=== PATIENT | male | born 1980 | race Caucasian/White ===

== ENCOUNTER 2021-10-30 10:38 | Emergency (ER) | payer OTHER, SELFPAY ==
--- NOTE | ~2021-10-30 | XR_ITS ---
EXAMINATION: XR CHEST CLINICAL INFORMATION: Altered mental status. COMPARISON: None TECHNIQUE: Frontal view of the chest was obtained. FINDINGS: Normal appearance of the cardiomediastinal silhouette. Mild interstitial prominence. No focal infiltrates. No pleural effusion or pneumothorax. No acute osseous abnormalities. The visualized upper abdomen is within normal limits. XR/XR chest 1V IMPRESSION: Mild interstitial prominence which is nonspecific and could be associated with small airways disease or atypical/viral infections.
[2021-10-30 10:52] VITALS: BP 119/78; PULSE 81; RESP 17; TEMP 36.9; O2SAT 98; BMI 37.5
[2021-10-30 11:06] VITALS: BP 119/78; PULSE 81; RESP 17; TEMP 36.9; O2SAT 98
--- NOTE | 2021-10-30 11:21 | ECG_ITS ---
Test Reason : medical clearance Blood Pressure : / mmHG Vent. Rate : 082 BPM Atrial Rate : 082 BPM P-R Int : 156 ms QRS Dur : 088 ms QT Int : 392 ms P-R-T Axes : 051 043 028 degrees QTc Int : 457 ms Normal sinus rhythm Normal ECG No previous ECGs available Referred By: Diana Dias Electronically Signed By:KAILA CISNEROS
--- NOTE | 2021-10-30 11:30 | ED_ITS ---
HPI - Psych General Chief Complaint: Psychiatric Symptoms Stated Complaint: increased confusion Time Seen by Provider: 10/30/21 11:11 Source: patient and EMS Mode of arrival: EMS History of Present Illness HPI Narrative: 41-year-old male with a past medical history schizoaffective bipolar type presenting to the ED from [facility] for ?AMS during group session today, patient was noted to be lethargic and falling asleep. Patient is currently admitted to [facility] for SI s/p medication overdose. Patient states facility recently increased his Seroquel from 50 mg b.i.d. to 100 mg b.i.d. which is making him drowsy. States he is also having vivid dreams secondary to medication. Denies any illicit drug or ETOH use. Denies SI/HI. States he has be your best, denies fever, chills, cough, nausea/, abdominal pain, fall or head injury MD complaint: altered mental status Onset (ago): hour(s) Duration: constant Related Data Home Medications Medication Instructions Recorded Confirmed atorvastatin 10 mg tablet 10 mg PO BEDTIME 10/30/21 10/30/21 buprenorphine 8 mg-naloxone 2 mg 1 film buccal BID 10/30/21 10/30/21 sublingual film (Suboxone) bupropion HCl 300 mg 24 hr tablet, 300 mg PO QAM 10/30/21 10/30/21 extended release citalopram 10 mg tablet 10 mg PO DAILY 10/30/21 10/30/21 gabapentin 800 mg tablet 800 mg PO TID 10/30/21 10/30/21 lisinopril 5 mg tablet 5 mg PO DAILY 10/30/21 10/30/21 metformin 500 mg tablet,extended 500 mg PO BID 10/30/21 10/30/21 release 24 hr olanzapine 20 mg tablet 20 mg PO BEDTIME 10/30/21 10/30/21 omeprazole 20 mg capsule,delayed 20 mg PO DAILY 10/30/21 10/30/21 release pantoprazole 20 mg tablet,delayed 20 mg PO DAILY 10/30/21 10/30/21 release prazosin 2 mg capsule 2 mg PO BEDTIME 10/30/21 10/30/21 quetiapine 100 mg tablet 100 mg PO BID 10/30/21 10/30/21 trazodone 50 mg tablet 50 mg PO BEDTIME PRN Insomnia 10/30/21 10/30/21 Allergies Allergy/AdvReac Type Severity Reaction Status Date / Time No Known Allergies Allergy Verified 10/30/21 11:21 Review of Systems Review of Systems: Constitutional: No Fever, No Chills, + Fatigue, No Malaise ENT/Mouth: No Ear Pain, No Nasal Congestion, No sore throat, No Rhinorrhea, No Swallowing Difficulty Eyes: No Eye Pain, No Swelling, No Redness, No Vision Changes Cardiovascular: No Chest Pain, No SOB, No Edema, No Palpitations Respiratory: No Cough, No Sputum, No Dyspnea Gastrointestinal: No Nausea, No Vomiting, No Diarrhea, No Constipation, No Abdominal pain Genitourinary: No Dysuria, No Hematuria, No Flank Pain Musculoskeletal: No joint pain, No Myalgias, No Joint Swelling Skin: No Skin Lesions, No rash Neuro: No Weakness, No Dizziness, No Headache Psych: No Anxiety/Panic, No Depression, No SI/HI/AH/VH, No Social Issues Yes all other systems are reviewed and are negative Constitutional: Constitutional: Reports as per [facility] Past Medical History Attestation statement: The following information was validated with the patient. Social History Social History Patient Tobacco Use Status: Current everyday Tobacco user Smoked in Last 30 Days: Yes Use of substances other than those prescribed or required for medical reasons: No Advance Directives: No Advance Directives Information Provided: Yes Healthcare Proxy: No Guardian: No Physical Exam Vital Signs: Vital Signs: Last Vital Signs Temp 98.5 F 10/30/21 11:06 Pulse 81 10/30/21 11:06 Resp 17 10/30/21 11:06 BP 119/78 10/30/21 11:06 Pulse Ox 98 10/30/21 11:06 O2 Del Method 10/30/21 11:06 BMI result Body Mass Index 37.5 Const: General: cooperative, healthy appearing, no acute distress, alert and lethargic Orientation/consciousness: patient oriented x3 and lethargic Limitations: no limitations HEENT: Head: Yes normal to inspection and Yes atraumatic Ears: hearing grossly normal bilaterally General nose exam: Normal external nose present Face and sinus: Yes normal facial exam Throat: Yes posterior oropharynx normal Eyes: General: appearance normal, both eyes and all related structures Pupils: Equal, round and reactive pupils present EOM: EOMs intact bilaterally Neck: Neck: Yes normal visual inspection and Yes no meningeal signs Resp: Effort & Inspection: normal respiratory effort and no respiratory distress Auscultation: clear to auscultation bilaterally, no rales, no rhonchi and no wheezes Cardio: Rate: regular rate Heart sounds: S1 normal heart sound present and S2 normal heart sound present GI: Inspection: Yes normal to inspection Palpation (GI): Soft to palpation, nontender, no guarding and not rigid : General: Yes no CVA tenderness Back/Spine/Pelvis: Back: no CVA tenderness Skin: Rashes: no rashes Wounds: no wounds Neuro: General: patient oriented x3, tone normal and no meningeal signs Cranial nerves: Yes CN's II-XII intact bilaterally and Yes Equal, round and reactive pupils present Gait exam (Neuro): Normal gait present Extrem: General: Yes normal to inspection Psych: Appearance: grossly normal Affect: normal affect Attitude: cooperative Thought process: Normal thought process present Thought content: Normal thought content present Insight: Good insight present (Psych) Judgement: Good judgement present (Psych) Course Course Course Narrative: -mild leukopenia at 4.6. H&H 10.2 / 32.9. Labs otherwise unremarkable. Tox screen negative -COVID-19 negative XR chest 1V IMPRESSION: Mild interstitial prominence which is nonspecific and could be associated with small airways disease or atypical/viral infections. >1420--patient is medically cleared for crisis evaluation. Physician observation initiated -2100--ED care transferred to Dr. Jack pending crisis evaluation MDM - Psych MDM Narrative Medical decision making narrative: 41-year-old male with a past medical history schizoaffective bipolar type presenting to the ED from [facility] for ?AMS during group session today, patient was noted to be lethargic and falling asleep. On exam vital signs stab le, NAD, nontoxic appearing, A&O x3, appears tired/lethargic however alert and conversational. Suspect medication adverse reaction due to recent change. Will rule out metabolic/infectious etiologies and substance abuse. No suspicion for ICH/CVA Plan: EKG, labs, UA, CXR, crisis consult Medical Records Attestation: I reviewed the patient's medical records. Lab Data Attestation: I reviewed the patient's lab results. Result diagrams: 10/30/21 11:50 10/30/21 11:50 Labs: Lab Results 10/30/21 10/30/21 10/30/21 Range/Units 11:50 11:50 11:50 WBC 4.6 L (4.8-10.8) X10*3/uL RBC 3.99 L (4.60-5.80) X10*6/uL Hgb 10.8 L (14.0-18.0) g/dl Hct 32.9 L (42.0-52.0) % MCV 82.5 (80.0-98.0) fL MCH 27.1 (27.0-33.0) pg MCHC 32.8 (31.0-36.0) g/dl RDW 13.6 (11.0-16.0) % Plt Count 203 (160-400) X10*3/uL MPV 10.7 (9.4-12.4) fL Immature Gran % (Auto) 0.4 (0.0-0.4) % Neut % (Auto) 34.3 L (45-73) % Lymph % (Auto) 51.4 H (20-40) % Sharkey % (Auto) 9.5 (2-11) % Eos % (Auto) 4.2 H (0-4) % Baso % (Auto) 0.2 (0-2) % Lymph # (Auto) 2.3 (1.2-4.9) X10*3/uL Sharkey # (Auto) 0.4 (0.1-1.2) X10*3/uL Eos # (Auto) 0.2 (0.0-0.4) X10*3/uL Baso # (Auto) 0.0 (0.0-0.2) X10*3/uL Abs Immat Gran (auto) 0.02 (0.00-0.03) X10*3/uL Absolute Neuts (auto) 1.6 L (2.0-8.3) x10*3/uL Absolute Nucleated RBC 0.000 (0.0-0.012) X10*3/uL Nucleated RBC % (auto) 0.0 (0.0-0.2) /100WBC Sodium 139 (135-145) mmol/L Potassium 4.4 (3.3-5.1) mmol/L Chloride 102 (96-108) mmol/L Carbon Dioxide 28 (22-29) mmol/L Anion Gap 13 (12-20) BUN 13 (9-16) mg/dL Creatinine 0.85 (0.5-1.4) mg/dL Estim Creat Clear Calc 134.5 Estimated GFR > 60 Random Glucose 177 H (60-115) mg/dL Calcium 9.5 (8.4-10.2) mg/dL Magnesium 1.6 (1.6-2.6) mg/dL Total Bilirubin 0.4 (0.0-1.0) mg/dL Direct Bilirubin 0.2 (0.0-0.5) mg/dL AST 33 (5-37) U/L ALT 38 (0-40) U/L Alkaline Phosphatase 60 (39-117) U/L Total Protein 6.6 (6.5-8.0) g/dL Albumin 3.9 (3.5-5.0) g/dL Urine Color Urine Appearance Urine pH (5.0-9.0) Ur Specific [place] (1.005-1.025) Urine Protein (Neg-Trace) mg/dL Urine Glucose (UA) (Negative) mg/dL Urine Ketones (Negative) mg/dL Urine Blood (Negative) Urine Nitrite (Negative) Ur Leukocyte Esterase (Negative) Urine Opiates Screen (Not Detect) Urine Fentanyl Screen (Not Detect) Ur Barbiturates Screen (Not Detect) Ur Phencyclidine Scrn (Not Detect) Ur Amphetamines Screen (Not Detect) U Benzodiazepines Scrn (Not Detect) Urine Cocaine Screen (Not Detect) U Marijuana (THC) Screen (Not Detect) Ethyl Alcohol < 10 mg/dL COVID-19 ([facility]ARA) Negative (Negative) COVID-19 Clin Com See Note 10/30/21 10/30/21 Range/Units 11:56 11:56 WBC (4.8-10.8) X10*3/uL RBC (4.60-5.80) X10*6/uL Hgb (14.0-18.0) g/dl Hct (42.0-52.0) % MCV (80.0-98.0) fL MCH (27.0-33.0) pg MCHC (31.0-36.0) g/dl RDW (11.0-16.0) % Plt Count (160-400) X10*3/uL MPV (9.4-12.4) fL Immature Gran % (Auto) (0.0-0.4) % Neut % (Auto) (45-73) % Lymph % (Auto) (20-40) % Sharkey % (Auto) (2-11) % Eos % (Auto) (0-4) % Baso % (Auto) (0-2) % Lymph # (Auto) (1.2-4.9) X10*3/uL Sharkey # (Auto) (0.1-1.2) X10*3/uL Eos # (Auto) (0.0-0.4) X10*3/uL Baso # (Auto) (0.0-0.2) X10*3/uL Abs Immat Gran (auto) (0.00-0.03) X10*3/uL Absolute Neuts (auto) (2.0-8.3) x10*3/uL Absolute Nucleated RBC (0.0-0.012) X10*3/uL Nucleated RBC % (auto) (0.0-0.2) /100WBC Sodium (135-145) mmol/L Potassium (3.3-5.1) mmol/L Chloride (96-108) mmol/L Carbon Dioxide (22-29) mmol/L Anion Gap (12-20) BUN (9-16) mg/dL Creatinine (0.5-1.4) mg/dL Estim Creat Clear Calc Estimated GFR Random Glucose (60-115) mg/dL Calcium (8.4-10.2) mg/dL Magnesium (1.6-2.6) mg/dL Total Bilirubin (0.0-1.0) mg/dL Direct Bilirubin (0.0-0.5) mg/dL AST (5-37) U/L ALT (0-40) U/L Alkaline Phosphatase (39-117) U/L Total Protein (6.5-8.0) g/dL Albumin (3.5-5.0) g/dL Urine Color Yellow Urine Appearance Clear Urine pH 6.0 (5.0-9.0) Ur Specific [place] 1.015 (1.005-1.025) Urine Protein Negative (Neg-Trace) mg/dL Urine Glucose (UA) Negative (Negative) mg/dL Urine Ketones Negative (Negative) mg/dL Urine Blood Negative (Negative) Urine Nitrite Negative (Negative) Ur Leukocyte Esterase Negative (Negative) Urine Opiates Screen Not Detected (Not Detect) Urine Fentanyl Screen Not Detected (Not Detect) Ur Barbiturates Screen Not Detected (Not Detect) Ur Phencyclidine Scrn Not Detected (Not Detect) Ur Amphetamines Screen Not Detected (Not Detect) U Benzodiazepines Scrn Not Detected (Not Detect) Urine Cocaine Screen Not Detected (Not Detect) U Marijuana (THC) Screen Not Detected (Not Detect) Ethyl Alcohol mg/dL COVID-19 ([facility]ARA) (Negative) COVID-19 Clin Com ECG Data Attestation: I personally reviewed and interpreted this ECG as follows: ECG interpretation date: 10/30/21 ECG interpretation time: 12:02 Interpretation: EKG normal sinus rhythm at a rate 82. . Novel 156. QTC 457. No STEMI Discharge Plan Discharge Clinical Impression: Lethargy, Medication adverse effect Patient Disposition: Still a Patient Prescriptions: No Action atorvastatin 10 mg Tablet 10 mg PO BEDTIME citalopram 10 mg Tablet 10 mg PO DAILY gabapentin 800 mg Tablet 800 mg PO TID omeprazole 20 mg Capsule,Delayed Release(Dr/Ec) 20 mg PO DAILY lisinopril 5 mg Tablet 5 mg PO DAILY olanzapine 20 mg Tablet 20 mg PO BEDTIME bupropion HCl 300 mg Tablet Extended Release 24 Hr 300 mg PO QAM trazodone 50 mg Tablet 50 mg PO BEDTIME PRN (Reason: Insomnia) quetiapine 100 mg Tablet 100 mg PO BID pantoprazole 20 mg Tablet,Delayed Release (Dr/Ec) 20 mg PO DAILY metformin 500 mg Tablet Extended Release 24 Hr 500 mg PO BID prazosin 2 mg Capsule 2 mg PO BEDTIME buprenorphine-naloxone [Suboxone] 8-2 mg Film 1 film BUCCAL BID
[2021-10-30 11:55] LABS: MANUAL DIFF FLAG NO
[2021-10-30 11:57] LABS: Basophils Percent Auto 0.2 % (0-2); Eosinophils Absolute Auto 0.2 X10*3/uL (0.0-0.4); Eosinophils Percent Auto 4.2 % (0-4); Hematocrit 32.9 % (42.0-52.0); Hemoglobin 10.8 g/dl (14.0-18.0); Imm Gran Abs Auto 0.02 X10*3/uL (0.00-0.03); Imm Gran Pct Auto 0.4 % (0.0-0.4); Lymphocytes Absolute Auto 2.3 X10*3/uL (1.2-4.9); Lymphocytes Percent Auto 51.4 % (20-40); Mean Corpuscular HGB Conc 32.8 g/dl (31.0-36.0); Mean Corpuscular Hemoglobin 27.1 pg (27.0-33.0); Mean Corpuscular Volume 82.5 fL (80.0-98.0); Mean Platelet Volume 10.7 fL (9.4-12.4); Monocytes Absolute Auto 0.4 X10*3/uL (0.1-1.2); Monocytes Percent Auto 9.5 % (2-11); Neutrophils Absolute Auto 1.6 x10*3/uL (2.0-8.3); Neutrophils Percent Auto 34.3 % (45-73); Platelet Count 203 X10*3/uL (160-400); Red Blood Count 3.99 X10*6/uL (4.60-5.80); Red Cell Distribution Width 13.6 % (11.0-16.0); White Blood Count 4.6 X10*3/uL (4.8-10.8)
[2021-10-30 12:11] LABS: Appearance Urine Clear; Color Urine Yellow; Glucose Urine UA Negative (Negative); Leukocyte Esterase Urine Negative (Negative); Nitrite Urine Negative (Negative); Specific Gravity - Urine 1.015 (1.005-1.025); Urine Blood Negative (Negative); Urine Ketones Negative (Negative); Urine Protein Negative (Neg-Trace)
[2021-10-30 12:13] LABS: Alanine Aminotransferase 38 U/L (0-40); Albumin Level 3.9 g/dL (3.5-5.0); Alkaline Phosphatase 60 U/L (39-117); Anion Gap 13 (12-20); Aspartate Amino Transferase 33 U/L (5-37); Bilirubin Direct 0.2 mg/dL (0.0-0.5); Bilirubin Total 0.4 mg/dL (0.0-1.0); Blood Urea Nitrogen 13 mg/dL (9-16); Calcium 9.5 mg/dL (8.4-10.2); Carbon Dioxide 28 mmol/L (22-29); Chloride 102 mmol/L (96-108); Creatinine Clr Calc Pharmacy 134.5; Estimated Glomerular Filt Rate > 60; Ethanol < 10 mg/dL; Glucose Random 177 mg/dL (60-115); Magnesium 1.6 mg/dL (1.6-2.6); Potassium 4.4 mmol/L (3.3-5.1); Sodium 139 mmol/L (135-145); Total Protein 6.6 g/dL (6.5-8.0)
[2021-10-30 12:17] LABS: COVID-19 Test Negative (Negative); IDNOW Serial# 16C4AD1C
[2021-10-30 12:21] LABS: Amphetamine Screen Urine Not Detected (Not Detect); Barbiturates, Urine Not Detected (Not Detect); Benzodiazepines Screen Urine Not Detected (Not Detect); Cannabinoid Screen Urine Not Detected (Not Detect); Cocaine Screen Urine Not Detected (Not Detect); Fentanyl, urine Not Detected (Not Detect); Opiate Screen Urine Not Detected (Not Detect); Phencyclidine Screen Urine Not Detected (Not Detect)
--- NOTE | 2021-10-30 12:22 | MHC.CARE ---
CARE Team spoke with Barb greenhouse assistant at [facility]. She reported Pt has been on the CSS x2 days and had a mental status change and feels he needs a crisis eval. She stated he has nightmares, not orientated to person or situation, and possible responding to internal stimuil? She reported they will not be holding Pts CSS bed and if Pt is cleared psychiatrically would have to refer himself to the program.
--- NOTE | 2021-10-30 16:37 | PC.NURSE ---
pt sleeping in his room. chest rises observed, resp even, nonlaboured.
[2021-10-31] VITALS (7 sets, daily range): BP systolic 110–142; BP diastolic 62–86; PULSE 69–103; RESP 17–22; TEMP 36.7–37; O2SAT 93–95
--- NOTE | 2021-10-31 07:08 | PC.NURSE ---
Patient slept through the night, no distress observed/reported, VSS, behavior appropriate and non concerning, patient will be assessed by care team in the morning, will continue to monitor.
--- NOTE | 2021-10-31 07:25 | PC.NURSE ---
patient appears to remain asleep at present repirations are even and unlabored patient appears in no distress
[2021-10-31] MEDS: Escitalopram Oxalate 5 MG TABLET PO (08:42)
[2021-10-31] MEDS: lisinopriL 5 MG TABLET PO (08:42)
[2021-10-31] MEDS: Buprenorphine/Naloxone 8/2 mg FILM 1 FILM BUCCAL ×2 (08:42→20:32)
[2021-10-31] MEDS: metFORMIN HCl ER 500 MG TAB.ER.24H PO ×2 (08:42→20:32)
[2021-10-31] MEDS: QUEtiapine Fumarate 100 MG TABLET PO ×3 (08:42→20:52)
[2021-10-31] MEDS: Gabapentin 400 MG CAPSULE 800 MG PO ×3 (08:42→20:31)
[2021-10-31] MEDS: buPROPion HCl XL 300 MG TAB.ER.24H PO (08:42)
[2021-10-31] MEDS: Omeprazole 20 MG CAPSULE.DR PO (08:42)
--- NOTE | 2021-10-31 09:04 | PC.NURSE ---
pt requested new gown and pants along with items to shower and clean up.
[2021-10-31] MEDS: hydrOXYzine HCL 50 MG TABLET PO (11:17)
--- NOTE | 2021-10-31 12:39 | PC.NURSE ---
patient when requests arent met (patient has markers and requests pen) youre worhtless to talk to
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
--- NOTE | 2021-10-31 14:12 | MHC.CARE ---
Care Team met with pt who arrived to [facility] ED from [facility] - Clinical stabilization services (CSS). Pt stated he wants to return to [facility] as he is homeless and does not have any other place to go. This senior grant writer had a telephonic encounter with Anabella Rae and she reported they do not have an open bed. Pt was alert and oriented. He stated he has a good appetite and able to sleep during the night. He denied SI/HI/AVH or psychotic symptoms.
[2021-10-31] MEDS: OLANZapine 10 MG VIAL IM (14:20)
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
[2021-10-31] MEDS: LORazepam 1 MG TABLET PO ×2 (15:17→18:11)
[2021-10-31] MEDS: Nicotine 21 MG PATCH.TD24 TRANSDERMA (15:17)
[2021-10-31] MEDS: Albuterol Sulfate 90 MCG 8 GM INHALER 2 PUFF INHALE (15:18)
[2021-10-31] MEDS: traZODone HCL 50 MG TABLET PO (20:31)
[2021-10-31] MEDS: Prazosin HCL 1 MG CAPSULE 2 MG PO (20:32)
[2021-10-31] MEDS: Atorvastatin Calcium 10 MG TABLET PO (20:32)
[2021-10-31] MEDS: OLANZapine 10 MG TABLET 20 MG PO (20:32)
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
[2021-11-01] MEDS: Omeprazole 20 MG CAPSULE.DR PO (05:59)
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
[2021-11-01] MEDS: Escitalopram Oxalate 5 MG TABLET PO (08:38)
[2021-11-01] MEDS: Buprenorphine/Naloxone 8/2 mg FILM 1 FILM BUCCAL (08:38)
[2021-11-01] MEDS: QUEtiapine Fumarate 50 MG TABLET PO (08:38)
[2021-11-01] MEDS: buPROPion HCl XL 300 MG TAB.ER.24H PO (08:38)
[2021-11-01] MEDS: metFORMIN HCl ER 500 MG TAB.ER.24H PO (08:38)
[2021-11-01] MEDS: Gabapentin 400 MG CAPSULE 800 MG PO (08:38)
[2021-11-01] MEDS: lisinopriL 5 MG TABLET PO (08:38)
[2021-11-01] MEDS: Nicotine 21 MG PATCH.TD24 TRANSDERMA (08:38)
[2021-11-02 04:43] LABS: HBS Num1 8.93 mIU/mL (0-7.99); HBc Num1 0.12 S/CO (0.00-0.79); HBsAGNum1 0.26 S/CO (0.00-0.99); HIV AB/AG Nonreactive (Nonreactive); HIV Num 1 0.08 S/CO (0.00-0.99); Hepatitis B Core Antibody Nonreactive (Nonreactive); Hepatitis B Surface Antigen Negative (Negative); ~HepC Num1 0.05 S/CO (0.00-0.79); ~Hepatitis C Antibody Nonreactive (Nonreactive)
[2021-11-02 05:21] LABS: HBS Num2 8.63 mIU/mL (0-7.99); HBS Num3 8.12 mIU/mL (0-7.99); ~Hepatitis B Surface Antibody GRAYZONE (Nonreactive)
== END 2021-11-01 12:15 | disposition home or self-care (01) ==
PROVIDERS: Physician Assistant; Physician Assistant Medical; Emergency Provider Emergency Medicine; PCP Internal Medicine
DX: R53.83 Other fatigue (principal); T43.595A Adverse effect of other antipsychotics and neuroleptics, initial encounter; Y92.049 Unspecified place in boarding-house as the place of occurrence of the external cause; R45.6 Violent behavior; F25.0 Schizoaffective disorder, bipolar type; F11.20 Opioid dependence, uncomplicated; F17.200 Nicotine dependence, unspecified, uncomplicated; Z20.822 Contact with and (suspected) exposure to COVID-19; Z78.1 Physical restraint status; Z79.899 Other long term (current) drug therapy
CPT/HCPCS: 36415; 71045; 80048; 80076; 80307; 81003; 82077; 83735; 85025; 86704; 86706; 86803; 87340; 87389; 87635; 93005; 96372; 99285